=== PATIENT | female | born 1960 | race Caucasian/White ===

== ENCOUNTER → 2020-06-03 | Day surgery (SDC) | payer OTHER ==
[~2020-06-03] MED LIST: ALPRAZOLAM0.25 MG PO; ASPIRIN81 M2 PO; BENADRYL25 M1 PO; CALCIUM 500 +1 EAC2 PO; CINNAMON500 MG PO; CO Q-10100 MG PO; FENTANYL CITRATE/PF 100MCG/2 ML INJ ONE; FERROUS SULFAT324 MG PO; FISH OIL 1,0001 EAC2 PO; GLUCAGON FOR INJ 1 MG VIAL ONE; HYDROCODON-ACE1 EAC4; HYOSCYAMINE 0.125 MG TAB ONE; LIDOCAINE HCL 2% LOCAL INJ 5 ML SDV VIAL INJ ONE; LOSARTAN-HCTZ1 EAC1 PO; MAGNESIUM OXID400 MG PO; MELOXICAM7.5 MG PO; METOCLOPRAMIDE10 MG PO; MIDAZOLAM HCL 2 MG/2 ML VIAL ONE; MULTI-VITAMIN1 EACH PO; MULTIPLE VITAM1 EAC1 PO; PANTOPRAZOLE 40 MG 10ML VIAL ONE; POTASSIUM CHLO10 ME1 PO; PRAVASTATIN SOD40 MG PO; PREMPRO 0.3 MG1 EACH PO; PROPOFOL IV EMULSION 10 MG/ML 20 ML VIAL ONE; RED YEAST RICE600 MG PO; VIT B12 PO; VITAMIN D31000 UNI1 PO; Z PREMPRO PO; Z.0.DEXILANT30 MG PO; ZESTORETIC 20-1 EAC2 PO; ZINC SULFATE220 M1 PO; ZYRTEC10 M3 PO; ZYRTEC10 MG PO; [UNRECOGNIZED DRUG - OTHER] PO
[2020-06-03 13:33] VITALS: BP 115/79
== END | disposition home or self-care (01) ==
LOC: OR 09:55
PROVIDERS: ATTEND Internal Medicine Gastroenterology
DX: K21.9 Gastro-esophageal reflux disease without esophagitis (principal); Z86.010 Personal history of colon polyps; K29.50 Unspecified chronic gastritis without bleeding; K20.90 Esophagitis, unspecified without bleeding; K57.30 Diverticulosis of large intestine without perforation or abscess without bleeding; K64.8 Other hemorrhoids; Z98.84 Bariatric surgery status; I10 Essential (primary) hypertension; Z01.810 Encounter for preprocedural cardiovascular examination; Z01.812 Encounter for preprocedural laboratory examination; Z20.828 Contact with and (suspected) exposure to other viral communicable diseases; Z79.82 Long term (current) use of aspirin; Z68.38 Body mass index [BMI] 38.0-38.9, adult
CPT/HCPCS: 43239; 43450; 45378; 93005; C9113; J1610; J2001; J2250; J2704; J3010; U0002

== ENCOUNTER → 2022-01-09 | Outpatient (CLI) | payer BC ==
[~2022-01-09] MED LIST changes: -FENTANYL CITRATE/PF 100MCG/2 ML INJ ONE; -GLUCAGON FOR INJ 1 MG VIAL ONE; -HYOSCYAMINE 0.125 MG TAB ONE; -LIDOCAINE HCL 2% LOCAL INJ 5 ML SDV VIAL INJ ONE; -MIDAZOLAM HCL 2 MG/2 ML VIAL ONE; -PANTOPRAZOLE 40 MG 10ML VIAL ONE; -PROPOFOL IV EMULSION 10 MG/ML 20 ML VIAL ONE
== END ==
LOC: US 09:28
PROVIDERS: ATTEND Family Medicine
DX: R10.84 Generalized abdominal pain (principal)
CPT/HCPCS: 76700

== ENCOUNTER → 2022-02-14 | Outpatient (CLI) | payer BC | LOC: MAMMO 11:10 | PROVIDERS: ATTEND Obstetrics & Gynecology | DX: Z12.31 Encounter for screening mammogram for malignant neoplasm of breast (principal) | CPT/HCPCS: 77067 ==

== ENCOUNTER → 2022-05-03 | Outpatient (CLI) | payer BC | LOC: RAD 11:33 | PROVIDERS: ATTEND Family Medicine | DX: J40 Bronchitis, not specified as acute or chronic (principal) | CPT/HCPCS: 71046 ==

== ENCOUNTER → 2022-07-18 | Outpatient (CLI) | payer BC | LOC: RAD 11:35 | PROVIDERS: ATTEND Family Medicine | DX: M25.552 Pain in left hip (principal); M54.50 Low back pain, unspecified | CPT/HCPCS: 72110 ==

== ENCOUNTER 2022-09-09 15:46 | Emergency (ER) | payer BC ==
[~2022-09-09] VITALS: Ht 157.5 cm; Wt 100.2 kg
[2022-09-09] MEDS ORDERED: ALBUTEROL/IPRATROPIUM 3 ML NEB NEB ONE ×2 (16:15→17:00)
[2022-09-09] MEDS ORDERED: METHYLPREDNISOLONE SOD SUCC 125 MG/2ML VIAL ONE (16:21)
[2022-09-09] MEDS ORDERED: ALBUTEROL/IPRATROPIUM 3 ML NEB ONE (16:21)
[2022-09-09] MEDS ORDERED: METHYLPREDNISOLONE SOD SUCC 125 MG/2ML VIAL IM ONE (17:00)
[2022-09-09] MEDS ORDERED: IPRATROPIU0.2 MG/1 M INH (17:37)
[2022-09-09] MEDS ORDERED: ALBUTEROL2.5 MG/3 M INH (17:37)
== END 2022-09-09 17:54 | disposition home or self-care (01) ==
LOC: FSED 16:14
DX: R05.9 Cough, unspecified (principal); J20.9 Acute bronchitis, unspecified; J45.901 Unspecified asthma with (acute) exacerbation; I10 Essential (primary) hypertension; E78.5 Hyperlipidemia, unspecified; K21.9 Gastro-esophageal reflux disease without esophagitis
CPT/HCPCS: 71046; 83518; 87400; 99283; J2930

== ENCOUNTER → 2024-02-22 | Day surgery (SDC) | payer BC ==
[~2024-02-22] MED LIST changes: +ALBUTEROL2.5 MG/3 M INH; +AMLODIPINE BESY10 MG PO; +BACLOFEN10 MG PO; +DEXMEDETOMIDINE HCL 200 MCG/2 ML VIAL ONE; +FAMOTIDINE20 MG PO; +IPRATROPIU0.2 MG/1 M INH; +LIDOCAINE HCL 2% LOCAL INJ 5 ML SDV VIAL INJ ONE; +NEXIUM40 MG PO; +PRAVASTATIN SOD20 MG PO; +PROBIOTIC & AC1 EACH PO; +PROPOFOL IV EMULSION 10 MG/ML 20 ML VIAL ONE; +PROPOFOL IV EMULSION 10 MG/ML 50 ML VIAL IV ONE
[2024-02-22] MEDS: LACTATED RINGER'S 1,000 ML ONE (06:37)
[2024-02-22 09:12] VITALS: TEMP 97.5
[2024-02-22 09:32] VITALS: BP 133/80; PULSE 50; RESP 18; O2SAT 95
== END | disposition home or self-care (01) ==
LOC: OR 06:15
PROVIDERS: ATTEND Internal Medicine Gastroenterology
DX: K20.90 Esophagitis, unspecified without bleeding (principal); D12.3 Benign neoplasm of transverse colon; K31.7 Polyp of stomach and duodenum; K29.70 Gastritis, unspecified, without bleeding; K21.9 Gastro-esophageal reflux disease without esophagitis; Z98.84 Bariatric surgery status; K57.30 Diverticulosis of large intestine without perforation or abscess without bleeding; K64.8 Other hemorrhoids; I10 Essential (primary) hypertension; E78.5 Hyperlipidemia, unspecified; M19.90 Unspecified osteoarthritis, unspecified site; F41.9 Anxiety disorder, unspecified; Z01.810 Encounter for preprocedural cardiovascular examination; Z79.82 Long term (current) use of aspirin; Z79.1 Long term (current) use of non-steroidal anti-inflammatories (NSAID); Z79.899 Other long term (current) drug therapy
CPT/HCPCS: 43239; 43450; 45385; 93005; J2470; J7121; 45378; J2001